=== PATIENT | female | born 1960 | race Caucasian/White ===

== ENCOUNTER 2017-01-01 12:42 | Outpatient (CLI) | payer BC ==
--- NOTE | 2017-01-01 17:05 | Mammography Report ---
DIGITAL DIAGNOSTIC BILATERAL MAMMOGRAM: 01/01/2017 CLINICAL INDICATION: Palpable abnormality right outer breast. TECHNIQUE: Bilateral CC and MLO views, right true lateral view. COMPARISON: 08/11/2013, 04/18/2010, 11/25/2007. FINDINGS: The breasts again demonstrate scattered fibroglandular densities bilaterally. There has be en interval development of a mass in the right outer breast, measuring approximately 4.3 x 3.9 x 3.5 cm. This is associated with pleomorphic calcifications, which extend over a much larger span of breas t parenchyma, approximately 10 cm from nipple to chest wall, and there appears to be tethering of the inferior margin of the pectoralis muscle on both the MLO and true lateral views. No mammographically suspicious findings are appreciated in the left breast. Please also refer to right breast ultrasound of the same day. IMPRESSION: FINDINGS HIGHLY SUGGESTIVE OF MALIGNANCY, WITH AN IRREGULAR MASS IN THE RIGHT OUTER [address] ASSOCIATED WITH PLEOMORPHIC CALCIFICATIONS. RECOMMENDATION: BIOPSY. THE MAIN MASS APPEARS AMENABLE TO ULTRASOUND-GUIDED CORE NEEDLE BIOPSY. BIRADS CATEGORY 5-HIGHLY SUGGESTIVE OF MALIGNANCY. Results and recommendations discussed with the patient at the time of the examination, and called to the office of PRINCE Marte, on 01/01/2017. Biopsy is scheduled for 01/07/2017 at 1 p.m. STANDARD QUALIFYING STATEMENTS 1. This examination was reviewed with the aid of Computer-Aided Detection (CAD). 2. A negative or benign imaging report should not delay biopsy if clinically suspicious findings are present. Consider surgical consultation if warranted. More than 5% of cancers are not identified by i maging. 3. Dense breasts may obscure an underlying neoplasm. JOB #: [id number] EXT JOB #:[id number]
--- NOTE | 2017-01-03 08:11 | Ultrasound Report ---
RIGHT BREAST ULTRASOUND: 01/01/2017 CLINICAL INDICATION: Palpable abnormality right breast. TECHNIQUE: Real-time scanning was performed with labor representative static images obtained. FINDINGS: Ultrasound of the right outer breast was performed. At the site of the palpable abnormality, there is a macrolobulated hypoechoic shadowing mass, measuri ng at least 2 cm in diameter, but due to the multiple lobulations, mammographic size may be more accu rate. Associated calcifications are seen. No definite right axillary lymphadenopathy is appreciated. IMPRESSION: HYPOECHOIC SOLID MASS CORRELATING WITH THE PALPABLE AND MAMMOGRAPHIC ABNORMALITIES. RECOMMENDATION: BIOPSY. THE LESION APPEARS AMENABLE TO ULTRASOUND-GUIDED CORE NEEDLE BIOPSY. BIRADS CATEGORY 5-HIGHLY SUGGESTIVE OF MALIGNANCY. Results and recommendations discussed with the patient at the time of the examination, and called to the office of PRINCE Marte, on 01/01/2017. Biopsy is scheduled for 01/07/2017 at 1 p.m. JOB #: [id number] EXT JOB #:[id number]
== END 2017-01-01 12:43 | disposition home or self-care (01) ==
LOC: DI 12:42
PROVIDERS: ATTEND Registered Nurse
DX: N63 Unspecified lump in breast (principal); R92.1 Mammographic calcification found on diagnostic imaging of breast
CPT/HCPCS: 76642; 77066

== ENCOUNTER 2017-01-07 12:39 | Outpatient (CLI) | payer BC ==
[2017-01-07] MEDS ORDERED: BUFFERED LIDOCAINE 10 ML SYRINGE IU ONE ×2 (14:50)
[2017-01-07] MEDS ORDERED: BUPIVACAINE 0.5%-EPI 1:200000 PF 30 ML VIAL SUBQ ONE (14:50)
--- NOTE | 2017-01-07 15:53 | Ultrasound Report ---
ULTRASOUND-GUIDED CORE NEEDLE BIOPSY RIGHT BREAST: 01/07/2017 CLINICAL INDICATION: A 4 cm mass. FINDINGS: Informed consent was obtained. Using standard aseptic technique, both 1% buffered lidocai ne and Sensorcaine were injected into the right breast for local anesthesia. A small diana was made i n the skin with a #11 blade. A 12-gauge Celero vacuum-assisted device was used to obtain three speci mens. A Celero marker was placed into the biopsy cavity under ultrasound guidance. The patient was taken t o a separate mammography machine and a 2-view digital mammogram was performed, documenting the marker in the expected location and no significant postbiopsy hematoma. The wound was dressed and ice applied. The patient was observed for approximately 15 minutes, then w as discharged from [facility] in good condition following instructions on wound care and obta ining biopsy results. The tissue was sent for histologic analysis. IMPRESSION: ULTRASOUND-GUIDED BIOPSY OF THE RIGHT BREAST. An addendum will be made to this report when pathology is reviewed to establish concordance. JOB #: [id number] EXT JOB #:
[2017-01-11 15:52] VITALS: BP 116/66
--- NOTE | 2017-02-22 11:00 | Mammography Report ---
REVISED: THIS REPORT WAS ORIGINALLY SIGNED ON 01/07/2017 @ 1530. ORDERS LINKED ON 02/22/2017. EXAM: [id number] /[id number] ([id number]) ULTRASOUND-GUIDED CORE NEEDLE BIOPSY RIGHT BREAST: 01/07/2017 CLINICAL INDICATION: A 4 cm mass. FINDINGS: Informed consent was obtained. Using standard aseptic technique, both 1% buffered lidocaine and Sensorcaine were injected into the right breast for local anesthesia. A small diana was made in the skin with a #11 blade. A 12 -gauge Celero vacuum-assisted device was used to obtain three specimens. A Celero marker was placed into the biopsy cavity under ultrasound guidance. The patient was taken to a separate mammography machine and a 2-view digital mammogram was performed, documenting the marker in the expected location and no significant postbiopsy hematoma. The wound was dressed and ice applied. The patient was observed for approximately 15 minutes, then was discharged from [facility] in good condition following instructions on wound care and obtaining biopsy results. The tissue was sent for histologic analysis. IMPRESSION: ULTRASOUND-GUIDED BIOPSY OF THE RIGHT BREAST. An addendum will be made to this report when pathology is reviewed to establish concordance. JOB #: [id number] EXT JOB #: Top Icer: Reading Radiologist: Jimbo Boo MD Releasing Radiologist: Jimbo Boo MD Released Date Time: 01/08/17 0809 <Electronically signed by Jimbo Boo MD> cc: PRINCE Rashid ADDENDUM ADDENDUM: ULTRASOUND-GUIDED CORE NEEDLE BIOPSY OF 01/07/2017: ADDENDUM: The procedure performed by Dr. Boo. Pathology reviewed by Dr. Boo. Final pathology results are malignant, demonstrating invasive ductal carcinoma. These results are concordant with the imaging findings. RECOMMENDATION: SURGICAL FOLLOWUP WITH TREATMENT PLANNING. IF CONSIDERATION IS GIVEN TO BREAST CONSERVATION, OR IF SUSPECTED PECTORALIS MUSCLE INVOLVEMENT SEEN ON MAMMOGRAPHY WOULD ALTER SURGICAL APPROACH, MRI MAY BE HELPFUL IN SURGICAL PLANNING. The patient is scheduled to obtain results from PRINCE Marte, on 01/13/2017 at 8:30 a.m. END OF ADDENDUM Addendum Top Icer: SHADY Addendum Reading Radiologist: Jimbo Boo MD Addendum Releasing Radiologist: Jimbo Boo MD Addendum Released Date Time: 01/11/17 1508 MTDD
== END 2017-01-07 12:40 | disposition home or self-care (01) ==
LOC: DI 12:39
PROVIDERS: ATTEND Registered Nurse
DX: C50.911 Malignant neoplasm of unspecified site of right female breast (principal); Z17.0 Estrogen receptor positive status [ER+]
CPT/HCPCS: 19083; 88305; 88360

== ENCOUNTER 2017-01-27 12:26 | Outpatient (CLI) | payer BC ==
[2017-01-27] MEDS ORDERED: GADOBUTROL 10 MMOL/10 ML SYRINGE IVP ONE (13:21)
--- NOTE | 2017-01-27 15:47 | MRI Report ---
MRI OF BILATERAL BREASTS WITH AND WITHOUT CONTRAST: 01/27/2017 CLINICAL INDICATION: Right breast cancer, question extent of disease and possible pectoralis involvem ent. TECHNIQUE: Using a dedicated breast coil, axial precontrast STIR, T1, dynamic postcontrast axial 3D i mages, axial 3D high resolution images, and postcontrast diffusion-weighted images were obtained. 8 m L of Gadavist was administered intravenously. Postprocessing with dynamic contrast enhancement analys is and multiplanar reformations were performed with Zura!. FINDINGS: RIGHT BREAST: The biopsy-proven breast cancer in the right outer breast is again identified. It measu res 6 cm craniocaudal by 4 cm transverse by 4.7 cm AP, and does directly involve the right pectoralis muscle, which is tethered anteriorly by the tumor, with a contact base and abnormal enhancement of t he pectoralis muscle extending for approximately 1 cm transverse. Small satellite nodules extend infe riorly from the mass. No skin or nipple involvement is appreciated. There is an abnormally enlarged l eft axillary lymph node, measuring 1.5 cm. The mass does demonstrate rapid enhancement with washout k inetics. LEFT BREAST: There is minimal background parenchymal enhancement in the left breast. No abnormal mass or enhancement is appreciated. Left axillary lymph nodes appear morphologically normal. IMPRESSION: 1. BIOPSY-PROVEN RIGHT BREAST CANCER, WITH DIRECT INVOLVEMENT OF THE PECTORALIS MUSCLE AND LIKELY RIG HT AXILLARY DANYA INVOLVEMENT. 2. NO ABNORMAL MASS OR ENHANCEMENT IDENTIFIED IN THE LEFT BREAST. RECOMMENDATION: SURGICAL CONSULTATION FOR TREATMENT PLANNING. BIRADS CATEGORY 6-KNOWN MALIGNANCY. THE PATIENT HAS BEEN INSTRUCTED TO OBTAIN RESULTS FROM [facility], IN FIVE BUSINESS DAYS. COMMENT: Breast MRI is a highly sensitive examination, and has a cancer detection threshold down to a pproximately 5 mm; however, it only has moderate specificity. Although breast MRI has a high negative predicted value, appropriate clinical and mammographic followup are always necessary. MRI may miss l ess angiogenic tumors; therefore, it should not be used to avoid a biopsy which is otherwise clinical ly indicated. Normal appearing lymph nodes may contain microscopic tumor. Due to prone positioning, vinicius vasquez described location of findings may differ from other modalities. JOB #: [id number] EXT JOB #:[id number]
== END 2017-01-27 12:27 | disposition home or self-care (01) ==
LOC: DI 12:26
PROVIDERS: ATTEND Nurse Practitioner Family
DX: C50.911 Malignant neoplasm of unspecified site of right female breast (principal)
CPT/HCPCS: 77059; A9585

== ENCOUNTER 2017-01-28 11:18 | Outpatient (CLI) | payer BC | END 2017-01-28 11:19 | disposition home or self-care (01) | LOC: DI 11:18 | PROVIDERS: ATTEND Internal Medicine Hematology & Oncology | DX: C50.411 Malignant neoplasm of upper-outer quadrant of right female breast (principal); I51.7 Cardiomegaly | CPT/HCPCS: 93306 ==

== ENCOUNTER 2017-05-03 08:19 | Outpatient (CLI) | payer BC | END 2017-05-03 08:20 | disposition home or self-care (01) | LOC: DI 08:19 | PROVIDERS: ATTEND Internal Medicine Hematology & Oncology | DX: C50.911 Malignant neoplasm of unspecified site of right female breast (principal) | CPT/HCPCS: 93306 ==

== ENCOUNTER 2017-05-24 05:10 | Emergency (ER) | payer BC ==
[2017-05-24 05:17] VITALS: BP 117/84
--- NOTE | 2017-05-24 05:54 | XRAY Preliminary Report ---
Exam: XR KNEE 3 VIEW LT IMPRESSION: 1. No acute fracture or dislocation seen. 2. Soft tissue swelling. [facility] SITE ID: [id number]
--- NOTE | 2017-05-24 05:57 | XRAY Report ---
EXAM: LEFT KNEE RADIOGRAPHY EXAM DATE: 05/24/2017 05:48 AM. CLINICAL HISTORY: Pain after injury. COMPARISON: None. TECHNIQUE: 3 views. FINDINGS: Bones: No acute fracture seen. Joints: No dislocation. Joint spaces are relatively well-preserved. Minimal if any joint effusion. Soft Tissues: Soft tissue swelling. IMPRESSION: 1. No acute fracture or dislocation seen. 2. Soft tissue swelling. [facility] Referring Provider Line: [phone] SITE ID: [id number]
--- NOTE | 2017-05-24 05:58 | ED Physician Documentation ---
PD HPI LOWER EXT INJURY - Stated complaint Stated Complaint: LT KNEE INJURY - Chief complaint Chief Complaint: Trauma Hd/Nk - History obtained from History obtained from: Patient, Family - History of Present Illness PD HPI LOW EXT INJURY LOCATION: Left, Knee Type of injury: Fall Where injury occurred: Street Timing - onset: How many minutes ago (30) Timing - details: Abrupt onset Improved by: Rest, Immobilization Worsened by: Moving, Palpating Associated symptoms: Swelling, Discolored Contributing factors: No: Anticoagulated, Prior ortho surgery Similar symptoms before: Has not had sx before Recently seen: Not recently seen - Additional information Additional information: Patient is a 56 year old female with a history of breast ca who is presenting to the emergency department after being pulled over by her dog when she tried to take him on a walk. Patient states that she fell hitting her left knee and her tooth. Patient states that she put her tooth back in place and will see her dentist today but she wanted the knee to be evaluated. Patient denies nausea, vomiting or loc Review of Systems Eyes: denies: Decreased vision, Photophobia Ears: denies: Drainage/discharge Nose: denies: Epistaxis Throat: reports: Dental pain / toothache Cardiac: denies: Chest pain / pressure, Palpitations Respiratory: denies: Wheezing GI: denies: Nausea, Vomiting : reports: Reviewed and negative Skin: reports: Abrasion (s) Musculoskeletal: reports: Extremity pain, Joint pain, Extremity swelling, Joint swelling Neurologic: denies: Generalized weakness, Focal weakness, Numbness Immunocompromised: denies: Immunocompromised PD PAST MEDICAL HISTORY - Past Medical History Past Medical History: Yes Cardiovascular: None Respiratory: Asthma Endocrine/Autoimmune: None GI: 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 : None HEENT: None Psych: Anxiety Musculoskeletal: None Derm: None - Past Surgical History Past Surgical History: Yes - Present Medications Home Medications: Ambulatory Orders Medication Instructions Recorded Confirmed Alprazolam [Xanax] 0.5 tab PO DAILY PRN 09/12/14 05/24/17 Dexamethasone 8 mg PO BID 02/08/17 05/24/17 Ondansetron [Ondansetron Odt] 4 mg PO Q4H PRN 02/08/17 05/24/17 Hydrocodone/Acetaminophen 1 tab ORAL Q4HR PRN 03/09/17 05/24/17 [Hydrocodon-Acetaminophen 5-325] Loratadine [Claritin] 10 mg PO DAILY 04/06/17 05/24/17 - Allergies Allergies/Adverse Reactions: Allergies Allergy/AdvReac Type Severity Reaction Status Date / Time No Known Drug Allergies Allergy Verified 05/24/17 05:17 - Social History Does the pt smoke?: No Smoking Status: Never smoker Does the pt drink ETOH?: Yes Does the pt have substance abuse?: No - Immunizations Immunizations are current?: Yes - POLST Patient has POLST: No PD ED PE NORMAL - Vitals Vital signs reviewed: Yes - General General: Alert and oriented X 3, Well developed/nourished - HEENT HEENT: PERRL, Ears normal - Neck Neck: Supple, no meningeal sign, No bony TTP - Cardiac Cardiac: RRR, No murmur - Respiratory Respiratory: No respiratory distress - Abdomen Abdomen: Soft, Non tender, Non distended - Neuro Neuro: Alert and oriented X 3, No motor deficit, No sensory deficit, Normal speech PD ED PE EXPANDED - HEENT HEENT: Head injury (loose upper medial incisor on the right, no active bleeding , no other bony tenderness) - Extremities Extremities: Left knee (tenderness, ecchymosis of left knee) Results - Vitals Vitals: Vital Signs - 24 hr 05/24/17 05:15 Temperature 36.5 C Heart Rate 80 Respiratory 20 Rate Blood Pressure 117/84 H O2 Saturation 97 Oxygen O2 Source Room air - Rads (name of study) knee x-ray Radiology: Final report received (no acute fracutre or dislocation) PD MEDICAL DECISION MAKING - ED course Complexity details: reviewed old records, reviewed results, re-evaluated patient , considered differential, d/w patient, d/w family ED course: Patient was seen and examined at bedside. patient was sent for imaging. when patient returned the results were reviewed. there was no acute fracture or dislocation. patient stated that she would see her dentist for her tooth. Patient required no further imaging at this time and was stable for discharge with outpatient follow up. Departure - Departure Disposition: 01 Home, Self Care Clinical Impression: Contusion of knee Condition: Good Instructions: ED Contusion Lower Ext Follow-Up: primary,dentist [Other] - Tomorrow Comments: Your x-rays today were within normal limits. there is no fracture or dislocation. YOu should continue to ice your knee and take your usual pain management. It is important that you follow up with your dentist today to evaluate your tooth. You can expect to be more sore tomorrow. You may return to the emergency department at any time for new, worsening or uncontrollable symptoms.
== END 2017-05-24 06:05 | disposition home or self-care (01) ==
LOC: ED 05:10
DX: S80.02XA Contusion of left knee, initial encounter (principal); W01.0XXA Fall on same level from slipping, tripping and stumbling without subsequent striking against object, initial encounter; Y93.K1 Activity, walking an animal; Y92.410 Unspecified street and highway as the place of occurrence of the external cause; J45.909 Unspecified asthma, uncomplicated; Z85.3 Personal history of malignant neoplasm of breast
CPT/HCPCS: 99283

== ENCOUNTER 2017-06-11 07:52 | Outpatient (CLI) | payer BC ==
[2017-06-11] MEDS ORDERED: GADOBUTROL 10 MMOL/10 ML VIAL ONE (08:13)
[2017-06-11] MEDS ORDERED: GADOBUTROL 10 MMOL/10 ML VIAL IVP ONE (08:41)
--- NOTE | 2017-06-11 13:03 | MRI Report ---
MRI OF THE BILATERAL BREASTS WITH AND WITHOUT CONTRAST: 06/11/2017 CLINICAL INDICATION: Right breast cancer, status post neoadjuvant chemotherapy. COMPARISON: Previous MRI of 01/27/2017. TECHNIQUE: Using a dedicated breast coil, axial precontrast STIR, T1, dynamic postcontrast axial 3D i mages, axial 3D high-resolution images, and postcontrast diffusion-weighted images were obtained. 8 m L of Gadavist was administered intravenously. Post-processing with dynamic contrast enhancement ria sis and multiplanar reformations were performed with Keemotion. FINDINGS: RIGHT BREAST: The previously diagnosed right breast cancer has decreased significantly in size in the interval, now measuring 2.4 x 1.9 x 1.7 cm (previously 6.0 x 4.7 x 4.0 cm). The abnormal enhancement extending back to involve the pectoralis muscle has resolved. The previously noted satellite nodules inferior to the mass are no longer appreciated. No right axillary adenopathy is identified. LEFT BREAST: There is minimal background parenchymal enhancement. No abnormal mass or abnormal enhanc ement is appreciated. Left axillary lymph nodes appear morphologically normal. IMPRESSION: SIGNIFICANT INTERVAL DECREASE IN SIZE OF THE BIOPSY-PROVEN RIGHT BREAST CANCER FOLLOWING NEOADJUVANT CHEMOTHERAPY. RESOLUTION OF PREVIOUSLY SEEN PECTORAL MUSCLE ENHANCEMENT AND TETHERING. RECOMMENDATION: SURGICAL FOLLOWUP FOR TREATMENT PLANNING. BIRADS CATEGORY 6-KNOWN MALIGNANCY. The patient has been instructed to obtain results from Dr. Zepeda in five business days. COMMENT: Breast MRI is a highly sensitive examination, and has a cancer detection threshold down to a pproximately 5 mm; however, it only has moderate specificity. Although breast MRI has a high negative predicted value, appropriate clinical and mammographic followup are always necessary. MRI may miss l ess angiogenic tumors; therefore, it should not be used to avoid a biopsy which is otherwise clinical ly indicated. Normal appearing lymph nodes may contain microscopic tumor. Due to prone positioning, t pedro described location of findings may differ from other modalities. JOB #: [id number] EXT JOB #:[id number]
== END 2017-06-11 07:53 | disposition home or self-care (01) ==
LOC: DI 07:52
PROVIDERS: ATTEND Internal Medicine Hematology & Oncology
DX: C50.911 Malignant neoplasm of unspecified site of right female breast (principal)
CPT/HCPCS: 77059; A9585

== ENCOUNTER 2017-08-26 11:14 | Outpatient (CLI) | payer BC | END 2017-08-26 11:15 | disposition home or self-care (01) | LOC: DI 11:14 | PROVIDERS: ATTEND Internal Medicine Hematology & Oncology | DX: C50.911 Malignant neoplasm of unspecified site of right female breast (principal) | CPT/HCPCS: 93306 ==

== ENCOUNTER 2017-12-14 13:52 | Outpatient (CLI) | payer BC | END 2017-12-14 13:53 | disposition home or self-care (01) | LOC: DI 13:52 | PROVIDERS: ATTEND Internal Medicine Hematology & Oncology | DX: C50.911 Malignant neoplasm of unspecified site of right female breast (principal) | CPT/HCPCS: 93306 ==

== ENCOUNTER 2018-01-14 10:48 | Outpatient (CLI) | payer BC ==
--- NOTE | 2018-01-17 17:02 | Mammography Report ---
Procedure Date: 01/14/2018 Accession Number: [id number] / [id number] Procedure: PALAK - Screening Mammo Dig LT CPT Code: FULL RESULT: EXAM: Screening Mammo Dig LT DATE: 01/14/2018 11:09 AM CLINICAL HISTORY: ROUTINE MAMMO, HX RT BREAST CA status post mastectomy TECHNIQUE: Unilateral left CC and MLO projections COMPARISON: 01/07/2017, 01/01/17, 08/11/2013, 04/18/2010 FINDINGS: There are scattered fibroglandular densities. There is no dominant mass, architectural distortion, skin thickening, suspicious microcalcifications or obvious interval change. Port-A-Cath left chest. IMPRESSION: Negative. BI-RADS 1. Suggest routine follow-up in 12 months.
== END 2018-01-14 10:49 | disposition home or self-care (01) ==
LOC: DI 10:48
PROVIDERS: ATTEND Internal Medicine Hematology & Oncology
DX: Z12.31 Encounter for screening mammogram for malignant neoplasm of breast (principal); Z85.3 Personal history of malignant neoplasm of breast; Z90.11 Acquired absence of right breast and nipple

== ENCOUNTER 2019-01-17 10:22 | Outpatient (CLI) | payer BC ==
--- NOTE | 2019-01-18 08:53 | Mammography Report ---
Reason: SCREENING MAMMO/ R BREAST CANCER Procedure Date: 01/17/2019 Accession Number: [id number] / [id number] Procedure: PALAK - Screening Mammo Left w/Cristian CPT Code: FULL RESULT: EXAM: Screening Mammo Left w/Cristian DATE: 01/17/2019 11:00 AM CLINICAL HISTORY: Screening encounter. History of nulliparity and personal history of breast cancer status post right mastectomy TECHNIQUE: (L) - Left CC and MLO views were obtained. COMPARISON: 01/07/2017 through 08/11/2013. PARENCHYMAL PATTERN: (A) - The breast(s) demonstrate(s) scattered fibroglandular densities. FINDINGS: A well-rounded hypodense 1.3 cm nodule in the retroareolar left breast, approximately 1 cm from the nipple is best demonstrated on the left 3-D MLO image 56 and the 3-D left CC image 40 and retrospectively readily identified as not significantly changed compared to prior examinations, typically benign. There are no suspicious masses, calcifications, or areas of distortion. IMPRESSION: Benign findings. BI-RADS category 2. RECOMMENDATION: (ANNUAL) - Recommend routine annual screening mammography. BI-RADS CATEGORY: (2) - Benign Findings. STANDARD QUALIFYING STATEMENTS: 1. This examination was not reviewed with the aid of Computer-Aided Detection (CAD). 2. A negative or benign imaging report should not preclude biopsy if clinically suspicious findings are present. 3. Dense breasts may obscure an underlying neoplasm. 4. This examination was reviewed with the aid of 3D breast imaging (tomosynthesis).
== END 2019-01-17 10:23 | disposition home or self-care (01) ==
LOC: DI 10:22
PROVIDERS: ATTEND Internal Medicine Hematology & Oncology
DX: Z12.31 Encounter for screening mammogram for malignant neoplasm of breast (principal); Z85.3 Personal history of malignant neoplasm of breast; Z90.11 Acquired absence of right breast and nipple
CPT/HCPCS: 77063

== ENCOUNTER 2019-03-31 10:36 | Outpatient (CLI) | payer BC ==
--- NOTE | 2019-04-02 06:30 | XRAY Report ---
Reason: RIGHT WRIST PAIN Procedure Date: 03/31/2019 Accession Number: [id number] / [id number] Procedure: XRS - Wrist 4 View RT CPT Code: FULL RESULT: EXAM: RIGHT WRIST RADIOGRAPHY EXAM DATE: 03/31/2019 10:45 AM. CLINICAL HISTORY: RIGHT WRIST PAIN. COMPARISON: None. TECHNIQUE: 4 views. FINDINGS: Bones: Normal. No fractures or bone lesions. Joints: Mild osteoarthritis. Soft Tissues: Normal. No soft tissue swelling. IMPRESSION: Mild osteoarthritis. No evidence of fracture. [facility]
== END 2019-03-31 10:37 | disposition home or self-care (01) ==
LOC: DI.S 10:36
PROVIDERS: ATTEND Internal Medicine
DX: M19.031 Primary osteoarthritis, right wrist (principal)

== ENCOUNTER 2019-04-25 09:53 | Outpatient (CLI) | payer BC ==
--- NOTE | 2019-04-27 08:34 | DEXA Report ---
Reason: HIGH RISK MEDICATION, RT BREAST CA Procedure Date: 04/25/2019 Accession Number: [id number] / [id number] Procedure: DEX - Dexa Spine and/or Hip CPT Code: FULL RESULT: EXAM: Dexa Spine and/or Hip DATE: 04/25/2019 10:18 AM CLINICAL HISTORY: HIGH RISK MEDICATION, RT BREAST CA TECHNIQUE: Dual energy x-ray absorptiometry (DXA) was performed on a Zymetis System. Regions measured are the AP Spine, femoral neck, and if needed forearm. COMPARISON: None. In accordance with the International Society for Clinical Densitometry (ISCD) guidelines, data from previous exams may be reanalyzed using current recommendations and techniques. This is done to allow a more accurate basis for comparison with the current study. FINDINGS: The data for the lumbar spine is as follows: BMD (g/cm/cm) T-SCORE Z-SCORE REGION L1 0.986 -1.2 -0.3 L2 1.037 -1.4 -0.5 L3 0.985 -1.8 -0.9 L4 1.140 -0.5 0.4 TOTAL 1.043 -1.1 -0.2 NOTE: All evaluable vertebrae are used for classification The data for the hip is as follows: BMD (g/cm/cm) T-SCORE Z-SCORE REGION Neck 0.883 -1.1 -0.1 TOTAL 0.951 -0.4 0.3 NOTE: The femoral neck or total proximal femur, whichever is lowest, is used for classification. IMPRESSION: THE WHO CLASSIFICATION BASED ON THE INTERNATIONAL REFERENCE STANDARD IS OSTEOPENIA. THE FRACTURE RISK IS INCREASED. RECOMMENDATION: Patients with diagnosis of osteoporosis or osteopenia should have regular bone mineral density assessment. For those eligible for Medicare, routine testing is allowed once every 2 years. Testing frequency can be increased for patients who have rapidly progressing disease or for those who are receiving medical therapy to restore bone mass. COMMENT: World Health Organization (WHO) definitions for osteoporosis and osteopenia: NORMAL BMD: T-score at -1.0 or higher, fracture risk is low OSTEOPENIA BMD: T-score between -1.0 and -2.5, fracture risk is increased. OSTEOPOROSIS BMD: T-score at -2.5 or lower, fracture risk is high. National Osteoporosis Foundation recommends: 1. Obtain adequate dietary calcium (at least 1200 mg per day) and vitamin D (400-800 international units per day). 2. Participate, as appropriate, in regular weightbearing and muscle-strengthening exercise. 3. Avoid tobacco use and reduce alcohol and caffeine intake. 4. For more detailed information see the website at www.NOF.org.
== END 2019-04-25 09:54 | disposition home or self-care (01) ==
LOC: DI 09:53
PROVIDERS: ATTEND Physician Assistant
DX: C50.919 Malignant neoplasm of unspecified site of unspecified female breast (principal); Z79.899 Other long term (current) drug therapy; M85.89 Other specified disorders of bone density and structure, multiple sites
CPT/HCPCS: 77080

== ENCOUNTER 2019-10-11 10:27 | Emergency (ER) | payer BC ==
[2019-10-11 10:45] VITALS: BP 124/93
== END 2019-10-11 11:25 | disposition left against medical advice (07) ==
LOC: ED 10:27
DX: Z53.21 Procedure and treatment not carried out due to patient leaving prior to being seen by health care provider (principal)

== ENCOUNTER 2020-02-01 10:11 | Outpatient (CLI) | payer BC ==
--- NOTE | 2020-02-01 12:33 | XRAY Report ---
PROCEDURE: Wrist 3 View RT INDICATIONS: PAIN IN RT WRIST TECHNIQUE: 3 views of the wrist were acquired. COMPARISON: 03/31/2019 FINDINGS: Bones: No acute fractures or dislocations. Mild degenerative changes of the right wrist including th e first carpometacarpal and triscaphe joints. No suspicious bony lesions. Soft tissues: No suspicious soft tissue calcifications. IMPRESSION: Stable radiographic evaluation of the right wrist without acute or subacute fracture or malalignment. Stable appearance of mild background degenerative change. Reviewed by: Arya Navarro MD on 02/01/2020 12:31 PM PDT Approved by: Arya Navarro MD on 02/01/2020 12:31 PM PDT Station ID: [id number]
== END 2020-02-01 10:12 | disposition home or self-care (01) ==
LOC: DI.S 10:11
PROVIDERS: ATTEND Orthopaedic Surgery
DX: M19.031 Primary osteoarthritis, right wrist (principal)

== ENCOUNTER 2020-03-18 09:57 | Outpatient (CLI) | payer BC | END 2020-03-18 09:58 | disposition home or self-care (01) | LOC: COV 09:57 | PROVIDERS: ATTEND Family Medicine | DX: Z20.828 Contact with and (suspected) exposure to other viral communicable diseases (principal) ==

== ENCOUNTER 2020-04-19 12:36 | Outpatient (CLI) | payer BC ==
--- NOTE | 2020-04-22 11:48 | Mammography Report ---
UNILATERAL LEFT DIGITAL SCREENING MAMMOGRAM 3D/2D: 04/19/2020 CLINICAL: Routine screening. Personal history of right breast cancer. Comparison is made to exams dated: 01/17/2019 mammogram, 01/14/2018 mammogram, 06/11/2017 breast MRI, 01/27/2017 breast MRI, 01/07/2017 mammogram, and 01/07/2017 ultrasound - [facility]. Th ere are scattered fibroglandular elements in left breast. No significant masses, calcifications, or other findings are seen in the breast. There has been no significant interval change. IMPRESSION: NEGATIVE There is no mammographic evidence of malignancy. A 1 year screening mammogram is recommended. This exam was interpreted at Station ID: [id number]. NOTE: For mammograms, a report in lay terms will be sent to the patient. Approximately 15% of breast malignancies will not be visualized mammographically. In the management of a palpable breast mass, a negative mammogram must not discourage biopsy of a clinically suspicious lesion. Electronically Signed By: Vivien alvarenga/chandrakant:04/19/2020 14:45:25 ACR BI-RADS Category 1: Negative [id number] PARENCHYMAL PATTERN: (A) - The breast(s) demonstrate(s) scattered fibroglandular densities. BI-RADS CATEGORY: (1) - 1 RECOMMENDATION: (ANNUAL) - Recommend routine annual screening mammography. [id number] 1 year screening LATERALITY: (B)
== END 2020-04-19 12:37 | disposition home or self-care (01) ==
LOC: DI 12:36
PROVIDERS: ATTEND Physician Assistant
DX: Z12.31 Encounter for screening mammogram for malignant neoplasm of breast (principal); Z85.3 Personal history of malignant neoplasm of breast
CPT/HCPCS: 77063

== ENCOUNTER 2021-05-01 12:51 | Outpatient (CLI) | payer BC ==
--- NOTE | 2021-05-01 16:26 | DEXA Report ---
PROCEDURE: Dexa Spine and/or Hip INDICATIONS: POST MENOPAUSAL TECHNIQUE: Dual energy x-ray absorptiometry (DXA) was performed on a [employer] System. Regions measur ed are the AP Spine, femoral neck, and if needed forearm. COMPARISON: None. FINDINGS: Lumbar Spine: Bone Mineral Density 0.991 g/cm/cm,T score -1.6, compared to -1.1 Left Hip: Bone Mineral Density 0.939 g/cm/cm,T score -0.5, compared to -0.4 Left Femoral Neck: Bone Mineral Density 0.920 g/cm/cm, T score -0.9, compared to -1.1 (T score greater or equal to -1.0: NORMAL) (T score from -1.1 to -2.4: OSTEOPENIA) (T score less than or equal to -2.5 to: OSTEOPOROSIS) Impression: Mild progression of mild to moderate osteopenia within the lumbar spine. Minimal progress ion with now minimal osteopenia in the left femoral neck. Patients with diagnosis of osteoporosis or osteopenia should have regular bone mineral density assess ment. For those eligible for Medicare, routine testing is allowed once every 2 years. Testing frequ ency can be increased for patients who have rapidly progressing disease or for those who are receivin g medical therapy to restore bone mass. Reviewed by: Lizzy Young MD on 05/01/2021 4:24 PM PDT Approved by: Lizzy Young MD on 05/01/2021 4:24 PM PDT Station ID: [id number]
== END 2021-05-01 12:52 | disposition home or self-care (01) ==
LOC: DI 12:51
PROVIDERS: ATTEND Physician Assistant
DX: Z78.0 Asymptomatic menopausal state (principal); M85.89 Other specified disorders of bone density and structure, multiple sites

== ENCOUNTER 2021-05-01 12:52 | Outpatient (CLI) | payer BC ==
--- NOTE | 2021-05-02 10:10 | Mammography Report ---
UNILATERAL LEFT DIGITAL SCREENING MAMMOGRAM 3D/2D: 05/01/2021 CLINICAL: Routine screening. Personal history of right breast cancer. Comparison is made to exams dated: 04/19/2020 mammogram, 01/17/2019 mammogram, 01/14/2018 mammogram, breast MRI, 01/27/2017 breast MRI, and 01/07/2017 mammogram - [facility]. Th ere are scattered fibroglandular elements in left breast. No significant masses, calcifications, or other findings are seen in the breast. There has been no significant interval change. IMPRESSION: NEGATIVE There is no mammographic evidence of malignancy. A 1 year screening mammogram is recommended. This exam was interpreted at Station ID: [id number]. NOTE: For mammograms, a report in lay terms will be sent to the patient. Approximately 15% of breast malignancies will not be visualized mammographically. In the management of a palpable breast mass, a negative mammogram must not discourage biopsy of a clinically suspicious lesion. Electronically Signed By: Marin Noyola acr/penrad:05/01/2021 14:15:31 ACR BI-RADS Category 1: Negative 3341F PARENCHYMAL PATTERN: (A) - The breast(s) demonstrate(s) scattered fibroglandular densities. BI-RADS CATEGORY: (1) - 1 RECOMMENDATION: (ANNUAL) - Recommend routine annual screening mammography. [id number] 1 year screening LATERALITY: (B)
--- NOTE | 2021-05-06 09:42 | ONCOLOGY/HEMATOLOGY VISIT ---
HEME/ONC PROGRESS NOTE: ONCOLOGY HISTORY: 1. Right breast infiltrating ductal carcinoma, clinical stage T4N1, ER positive, TX negative, HER-2 positive. A. Neoadjuvant chemotherapy B. Right mastectomy 07/2017. Adjuvant radiation 09/2017 C. Letrozole adjuvant endocrine therapy ongoing since 2017 D. Course complicated by right arm lymphedema, improved with PT. 2. Osteopenia HISTORY OF CURRENT ILLNESS/REVIEW OF SYSTEMS: Feeling tired. no other side effects attributable to letrozole. no new or increased joint pain or muscle pains. ASSESSMENT/PLAN: 1. history of right breast infiltrating ductal carcinoma: There is no clinical evidence for recurrence or metastases today. Reasonable toleration of letrozole. Most recent mammogram 05/01/2021 showing no concerning findings. -Continue daily letrozole for a total of 10 years. she is comfortable with the plan. -Next screening mammogram left breast due in a year. 2. Osteopenia: Baseline DEXA 04/25/2019 shows osteopenia, T -1.1. She is aware this may worsen on aromatase inhibitor therapy. * reviewed with her the DEXA result from 04/2021 that showed worsened osteopenia. * Continue 1200 mg/day calcium to include supplement + dietary intake and vitamin D 800 international units/day. * recommended iv zometa every six months for 3-5 years. Will obtain financial auth and then contact her to set it up. * encouraged weight bearing exercises. 3. follow up in six months. PHYSICAL EXAM: Constitutional: Pleasant woman unaccompanied. HEENT: Sclera anicteric. Pupils equal round. Lymph nodes: No cervical or supraclavicular lymphadenopathy. Lungs: Breathing comfortably. Chest: Reconstructed right breast. There is no palpable mass to right chest wall or to left breast nor to bilateral axilla. Extremities: There is no edema to upper or lower extremities today. Skin: Devoid of generalized rash. E/M code was selected based on 30 minutes spent on the date of encounter reviewing pertinent history and previous diagnostics, including outside facility medical records, performing medically appropriate examination and evaluation, ordering diagnostic tests and/or medications, counseling and education to patient/family/caregiver, referring and communicating with other health home health care worker, documenting clinical information in the electronic health record, independently interpreting results and communicating results to the patient/family/caregiver. This is excludes activities performed by clinical staff. Clinical Data: Allergies No Known Drug Allergies Allergy (Verified 10/22/20 11:17) Home Medications ALPRAZolam [Xanax] 0.5 tab PO DAILY PRN 09/12/14 [History Last Taken 05/23/17] Letrozole 2.5 mg PO DAILY 11/16/17 [History Last Taken Unknown]
== END 2021-05-01 12:53 | disposition home or self-care (01) ==
LOC: DI 12:52
PROVIDERS: ATTEND Physician Assistant
DX: Z12.31 Encounter for screening mammogram for malignant neoplasm of breast (principal); Z85.3 Personal history of malignant neoplasm of breast

== ENCOUNTER 2021-11-20 08:00 | Outpatient (CLI) | payer BC ==
[2021-11-20 15:34] LABS: BASOPHILS % (AUTO) 0.2 %; EOSINOPHILS # (AUTO) 0.1 10^3/uL (0.0-0.7); EOSINOPHILS % (AUTO) 1.2 %; HCT - HEMATOCRIT 42.8 % (37.0-47.0); HGB - HEMOGLOBIN 14.1 g/dL (12.0-16.0); LYMPHOCYTES # (AUTO) 0.7 10^3/uL (1.5-3.5); LYMPHOCYTES % (AUTO) 13.4 %; MEAN CORPUSCULAR HEMOGLOBIN 25.2 pg (27.0-31.0); MEAN CORPUSCULAR HGB CONC 32.9 g/dL (32.0-36.0); MEAN CORPUSCULAR VOLUME 76.4 fL (81.0-99.0); MEAN PLATELET VOLUME 10.9 fL (7.9-10.8); MONOCYTES # (AUTO) 0.2 10^3/uL (0.0-1.0); MONOCYTES % (AUTO) 4.3 %; NEUTROPHILS # (AUTO) 4.1 10^3/uL (1.5-6.6); NEUTROPHILS % (AUTO) 80.7 %; PLT - PLATELET COUNT 235 10^3/uL (130-450); RED CELL DISTRIBUTION WIDTH 16.1 % (12.0-15.0); WHITE BLOOD COUNT 5.1 x10^3/uL (4.8-10.8)
[2021-11-20 16:01] LABS: CALCIUM 9.2 mg/dL (8.5-10.3); CREATININE 0.7 mg/dL (0.4-1.0); CRP - C-REACTIVE PROTEIN 11.1 mg/dL (0-1.0); POTASSIUM 3.6 mmol/L (3.5-5.0)
== END 2021-11-20 23:59 | disposition home or self-care (01) ==
LOC: LAB.S 08:00
PROVIDERS: ATTEND Registered Nurse
DX: M54.2 Cervicalgia (principal)
CPT/HCPCS: 36415; 80053; 85025; 85651; 86140

== ENCOUNTER 2021-11-20 10:31 | Outpatient (CLI) | payer BC ==
--- NOTE | 2021-11-20 13:25 | XRAY Report ---
PROCEDURE: Cervical Spine 3 View INDICATIONS: NECK PAIN TECHNIQUE: 3 view(s) of the cervical spine were acquired. COMPARISON: None. FINDINGS: Bones: No fractures or dislocations to the T1 level. There is approximately 3 mm of C3-C4 anterolist hesis. There is approximately 1-2 mm of C4-C5 anterolisthesis. The lateral masses of C1 appear intact on the odontoid view. No suspicious bony lesions. Spine degenerative disc disease and facet arthrop athy are noted. Soft tissues: No prevertebral soft tissue swelling. Surgical clips noted in the left neck soft tissu es. IMPRESSION: 1. Multilevel degenerative disc disease. 2. Multilevel facet arthropathy. 3. No fracture. No acute osseous lesion. If there is continued clinical concern for pathology, then M RI should be considered for further evaluation. Reviewed by: Flower Child MD, PhD on 11/20/2021 1:23 PM PDT Approved by: Flower Child MD, PhD on 11/20/2021 1:23 PM PDT Station ID: [id number]
== END 2021-11-20 23:59 | disposition home or self-care (01) ==
LOC: DI.S 10:31
PROVIDERS: ATTEND Registered Nurse
DX: M47.812 Spondylosis without myelopathy or radiculopathy, cervical region (principal); M43.12 Spondylolisthesis, cervical region; M50.30 Other cervical disc degeneration, unspecified cervical region

== ENCOUNTER 2022-08-10 08:50 | Outpatient (CLI) | payer BC | END 2022-08-10 08:51 | disposition home or self-care (01) | LOC: LAB.S 08:50 | PROVIDERS: ATTEND Physician Assistant | DX: Z01.812 Encounter for preprocedural laboratory examination (principal); Z20.822 Contact with and (suspected) exposure to COVID-19 ==

== ENCOUNTER 2022-12-09 15:13 | Outpatient (CLI) | payer BC ==
--- NOTE | 2022-12-10 09:32 | Mammography Report ---
UNILATERAL LEFT DIGITAL SCREENING MAMMOGRAM 3D/2D: 12/09/2022 CLINICAL: Routine screening. Personal history of right breast cancer. Comparison is made to exams dated: 05/01/2021 mammogram, 01/17/2019 mammogram, 04/19/2020 mammogram, an d 01/14/2018 mammogram - [facility]. There are scattered areas of fibroglandular density in the left breast (category b / 25%-50% glandula r tissue). No significant masses, calcifications, or other findings are seen in the breast. There has been no significant interval change. IMPRESSION: NEGATIVE There is no mammographic evidence of malignancy. A 1 year screening mammogram is recommended. This exam was interpreted at Station ID: [id number]. NOTE: For mammograms, a report in lay terms will be sent to the patient. Approximately 15% of breast malignancies will not be visualized mammographically. In the management of a palpable breast mass, a negative mammogram must not discourage biopsy of a clinically suspicious lesion. Electronically Signed By: Rajesh herrera/chandrakant:12/10/2022 09:08:19 letter sent: No_Letter ACR BI-RADS Category 1: Negative 3341F PARENCHYMAL PATTERN: (A) - The breast(s) demonstrate(s) scattered fibroglandular densities. BI-RADS CATEGORY: (1) - 1 Mammogram [id number] 1 year screening LATERALITY: (B)
== END 2022-12-09 15:14 | disposition home or self-care (01) ==
LOC: DI.S 15:13
PROVIDERS: ATTEND Internal Medicine Hematology & Oncology
DX: Z12.31 Encounter for screening mammogram for malignant neoplasm of breast (principal); Z85.3 Personal history of malignant neoplasm of breast